=== PATIENT | female | born 1965 | race Caucasian/White ===

== ENCOUNTER → 2024-01-11 12:13 | Outpatient (REF) | payer BC, SELFPAY | LOC: RAD 12:13 | PROVIDERS: ATTENDING PHYSICIAN Internal Medicine Hematology & Oncology; FAMILY PHYSICIAN Family Medicine | DX: C34.12 Malignant neoplasm of upper lobe, left bronchus or lung (principal) | CPT/HCPCS: 71260; Q9967 ==

== ENCOUNTER 2024-06-25 13:59 | Emergency (ER) | payer BC, SELFPAY ==
[2024-06-25 14:01] VITALS: BP 144/83
--- NOTE | 2024-06-25 14:45 | ED.GENMED ---
History of Present Illness
<Yessi Matamoros TRAINING OFFICER - Last Filed: 06/27/24 10:29>
General
Chief Complaint: Abdominal Pain
Source: patient
Exam Limitations: none
Time Seen by Provider: 06/25/24 14:39
Nursing documentation reviewed up to this point in time: agreed with
History of Present Illness
History of Present Illness:
58-year-old female with history of COPD, former smoker, lung cancer with left upper lobectomy 11/2018 and chemotherapy, STEMI, cardiac stent x 2 LAD 05/2021, HLD, HTN, GERD, Barett's esophagus, hiatal hernia, Lupus, anxiety/depression, rheumatoid
arthritis presents stating for past 4 days she's had intermittent frequent mid to upper abdominal cramps sometimes radiating half way up mid chest. Sometimes cramps are so bad she is doubled over with pain. She gets 15-20 minutes respite between
episodes, does not occur at night and has been sleeping well.
No aggravating or relieving factors. No radiation of pain to extremities. Intermittent nausea, denies v/d/c. Denies UTI symptoms. Having normal BMs
Gets Repatha injections every other Sunday for cholesterol [facility].
She tested Covid neg at home today.
Currently 'a little discomfort' mid epigastric area. Feels SOB 'at times' not now.
Her PCP sent her in for CT scan and workup
Past History
<Yessi Matamoros TRAINING OFFICER - Last Filed: 06/27/24 10:29>
Past History
ED Past Medical History: CAD, Cancer (Lung), COPD, GERD (Barrette's esophagus), HTN, Hypercholesterolemia, Psychiatric (anxiety/depression) and Other (Major dental surgery with gums rebuilt, all upper teeth extracted and four lower teeth and
implants on the bottom.)
ED Past Surgical History: Cardiac (Stent LAD), Gynecological (laparoscopy for endometriosis) and Other (L upper lung lobectomy )
Social History
Tobacco: Former smoker
Alcohol: Occasional
Drug: None
Personal:
Living: with family
Family History
Family History: Other (mom with [facility] this week at age 65.)
Review of Systems
<Yessi Matamoros TRAINING OFFICER - Last Filed: 06/27/24 10:29>
Review of Systems
Allergies reviewed?: Yes
All Other Systems: ROS reviewed and negative except as documented in HPI and ROS
Constitutional: Denies fever or fatigue
Respiratory: Denies trouble breathing
Cardiac: Denies diaphoresis or palpitations
ABD/GI: Reports abdominal pain (points to epigastric region and 1/2 way up mid chest) and nausea; Denies vomiting, diarrhea, constipated, bloody stools or black stools
: Reports frequency (going more but she is drinking a lot more); Denies dysuria, flank pain, difficulty voiding, urgency or dark urine
Musculoskeletal: Reports no symptoms
Skin: Reports no symptoms
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
Phy Exam
<Yessi Matamoros, TRAINING OFFICER - Last Filed: 06/27/24 10:29>
Physical Exam
Physical Exam:
GENERAL: No acute distress. A&Ox3.
CONSTITUTIONAL: Afebrile.
EYES: clear, conjunctivae normal
ENMT: moist mucus membranes, Pharynx nl
RESPIRATORY: Regular respirations, nonlabored, lungs clear.
CARDIOVASCULAR: Regular rate and rhythm, no murmurs, no rubs.
GI: Soft, mildly tender epigastric area, nondistended, normal BS
MUSCULOSKELETAL: Moves with ease. Well perfused.
SKIN: Warm, dry, pink
PSYCH: Normal mood and affect. Well kept, interactive and appropriate
NEUROLOGIC: Awake, alert and oriented. No focal neurological deficits
Course
<Yessi Matamoros TRAINING OFFICER - Last Filed: 06/27/24 10:29>
Orders/Labs/Results
Orders:
Orders
06/25/24 15:02
EKG [Electrocardiogram (*1)] Urgent
Reason for Study: Abdominal Pain
EKG- Treatment ONCE
06/25/24 15:03
CR Chest - 2 Views Urgent
Comment:
Reason For Exam: chest discomfort
06/25/24 15:12
CT Abd/pel W Iv And Oral Contr Urgent
Comment:
Reason For Exam: mid to upper abd pain, cramping
0.9% Sodium Chloride 1000 ml [Nss] 1,000 ml IV BOLUS
Iohexol [Omnipaque] See Protocol PO NOW STA
06/25/24 15:15
Mag Hydrox/Al Hydrox/Simeth [Maalox] 30 ml Phenobarb/Hyoscy/Atropine/Scop [] 10 ml Viscous Lidocaine 2% [Xylocaine Viscous Cup] 10 ml PO NOW
06/25/24 15:17
Complete Blood Count/With Diff Urgent
Comprehensive Metabolic Panel Urgent
Lipase Urgent
Troponin I Urgent
UA Reflex to Culture [Urinalysis Reflex To Culture] Urgent
Date Specimen was Collected: 06/25/24
Time Specimen was Collected: 15:03
06/25/24 15:24
Mag Hydrox/Al Hydrox/Simeth [Maalox] 30 ml .ROUTE .STK-MED ONE
Phenobarb/Hyoscy/Atropine/Scop [] 10 ml .ROUTE .STK-MED ONE
06/25/24 15:25
Viscous Lidocaine 2% [Xylocaine Viscous Cup] 15 ml .ROUTE .STK-MED ONE
Abnormal Lab Results
06/25/24
15:17
RBC 4.17 L 10^6/uL
(4.20-5.40)
Hct 36.6 L %
(37.0-47.0)
Absolute Monos (auto) 0.8 H 10^3/uL
(0.1-0.6)
BUN 5 L mg/dl
(7-17)
Creatinine 0.5 L mg/dL
(0.6-1.0)
06/25/24 15:17
06/25/24 15:17
Vital Signs
Initial and Last Documented VS:
Initial Vital Signs
Temp Pulse Resp BP Pulse Ox
98 F 87 16 144/83 98
06/25/24 14:01 06/25/24 14:01 06/25/24 14:01 06/25/24 14:01 06/25/24 14:01
Last Documented Vital Signs
Temp Pulse Resp BP Pulse Ox
98 F 62 20 157/85 97
06/25/24 14:01 06/25/24 20:03 06/25/24 20:03 06/25/24 20:00 06/25/24 20:03
<JENA Walker - Last Filed: 06/25/24 20:01>
Orders/Labs/Results
Orders:
Orders
06/25/24 15:02
EKG [Electrocardiogram (*1)] Urgent
Reason for Study: Abdominal Pain
EKG- Treatment ONCE
06/25/24 15:03
CR Chest - 2 Views Urgent
Comment:
Reason For Exam: chest discomfort
06/25/24 15:12
CT Abd/pel W Iv And Oral Contr Urgent
Comment:
Reason For Exam: mid to upper abd pain, cramping
0.9% Sodium Chloride 1000 ml [Nss] 1,000 ml IV BOLUS
Iohexol [Omnipaque] See Protocol PO NOW STA
06/25/24 15:15
Mag Hydrox/Al Hydrox/Simeth [Maalox] 30 ml Phenobarb/Hyoscy/Atropine/Scop [] 10 ml Viscous Lidocaine 2% [Xylocaine Viscous Cup] 10 ml PO NOW
06/25/24 15:17
Complete Blood Count/With Diff Urgent
Comprehensive Metabolic Panel Urgent
Lipase Urgent
Troponin I Urgent
UA Reflex to Culture [Urinalysis Reflex To Culture] Urgent
Date Specimen was Collected: 06/25/24
Time Specimen was Collected: 15:03
06/25/24 15:24
Mag Hydrox/Al Hydrox/Simeth [Maalox] 30 ml .ROUTE .STK-MED ONE
Phenobarb/Hyoscy/Atropine/Scop [] 10 ml .ROUTE .STK-MED ONE
06/25/24 15:25
Viscous Lidocaine 2% [Xylocaine Viscous Cup] 15 ml .ROUTE .STK-MED ONE
Abnormal Lab Results
06/25/24
15:17
RBC 4.17 L 10^6/uL
(4.20-5.40)
Hct 36.6 L %
(37.0-47.0)
Absolute Monos (auto) 0.8 H 10^3/uL
(0.1-0.6)
BUN 5 L mg/dl
(7-17)
Creatinine 0.5 L mg/dL
(0.6-1.0)
06/25/24 15:17
06/25/24 15:17
Vital Signs
Initial and Last Documented VS:
Initial Vital Signs
Temp Pulse Resp BP Pulse Ox
98 F 87 16 144/83 98
06/25/24 14:01 06/25/24 14:01 06/25/24 14:01 06/25/24 14:01 06/25/24 14:01
Last Documented Vital Signs
Temp Pulse Resp BP Pulse Ox
98 F 62 20 157/85 97
06/25/24 14:01 06/25/24 20:03 06/25/24 20:03 06/25/24 20:00 06/25/24 20:03
<Yessi Matamoros, TRAINING OFFICER - Last Filed: 06/27/24 10:29>
MDM/Problems Addressed
Differential Diagnosis Includes:
gastritis, PUD, GERD, Padilla's esophagus, less likely ACS
MDM/Problems Addressed:
58-year-old female with history of COPD, former smoker, lung cancer with left upper lobectomy 11/2018 and chemotherapy, STEMI, cardiac stent x 2 LAD 05/2021, HLD, HTN, GERD, Barett's esophagus, hiatal hernia, Lupus, anxiety/depression, rheumatoid
arthritis presents stating for past 4 days she's had intermittent frequent mid to upper abdominal cramps sometimes radiating half way up mid chest. Sometimes cramps are so bad she is doubled over with pain. She gets 15-20 minutes respite between
episodes, does not occur at night and has been sleeping well.
No aggravating or relieving factors. No radiation of pain to extremities. Intermittent nausea, denies v/d/c. Denies UTI symptoms. Having normal BMs
Gets Repatha injections every other Sunday for cholesterol since her [facility].
She tested Covid neg at home today.
Currently 'a little discomfort' mid epigastric area. Feels SOB 'at times' not now.
Her PCP sent her in for CT scan and workup
Afebrile, NAD
EKG: Sinus bradycardia
3:30 p.m.
CBC normal
CMP: normal
U/A neg
Troponin normal
CXR: Radiology report read: COPD, nothing acute
Pt prepping for CT. Case discussed with Corinna Moore TRAINING OFFICER who will assume care from this point.
Chronic conditions affecting care: HTN, CAD, COPD and Cancer (hx lung CA w lobe resection and chemo)
<JENA Walker - Last Filed: 06/25/24 20:01>
MDM/Problems Addressed
MDM/Problems Addressed:
58-year-old female with history of COPD, former smoker, lung cancer with left upper lobectomy 11/2018 and chemotherapy, STEMI, cardiac stent x 2 LAD 05/2021, HLD, HTN, GERD, Barett's esophagus, hiatal hernia, Lupus, anxiety/depression, rheumatoid
arthritis presents stating for past 4 days she's had intermittent frequent mid to upper abdominal cramps sometimes radiating half way up mid chest. Sometimes cramps are so bad she is doubled over with pain. She gets 15-20 minutes respite between
episodes, does not occur at night and has been sleeping well.
No aggravating or relieving factors. No radiation of pain to extremities. Intermittent nausea, denies v/d/c. Denies UTI symptoms. Having normal BMs
Gets Repatha injections every other Sunday for cholesterol since her [facility].
She tested Covid neg at home today.
Currently 'a little discomfort' mid epigastric area. Feels SOB 'at times' not now.
Her PCP sent her in for CT scan and workup
Afebrile, NAD
EKG: Sinus bradycardia
3:30 p.m.
CBC normal
CMP: normal
U/A neg
Troponin normal
CXR: Radiology report read: COPD, nothing acute
Pt prepping for CT. Case discussed with Corinna Moore NP who will assume care from this point.
Patient signed out to me. CAT scan resulted no acute significant acute abnormality: Will DC as planned with treatment for GERD . PT in no distress stable for d/c home.
<Yessi Matamoros NP - Last Filed: 06/27/24 10:29>
*EKG
Interpreted by ED Provider?: Yes
EKG Intrepretation Date: 06/25/24
Interpretation: abnormal
Heart Rate: 58
Rate: bradycardiac
Rhythm: sinus
[place]: normal axis
Interval: normal interval
QRS Pattern: normal QRS
Ischemia: no ischemia
<JENA Walker - Last Filed: 06/25/24 20:01>
*Critical Care Note
Total Time (30-74mins, 75-104mins- exclusive of procedures): Not Applicable
ED Attending Note
<Yessi Matamoros NP - Last Filed: 06/27/24 10:29>
-
Portions of this chart may have been created with voice recognition software.� Occasional wrong word or��sound alike� substitutions may have occurred due to the inherent limitations of voice recognition software.
Discharge Plan
Departure
Patient Disposition: Home (Routine Discharge)
Date of Disposition: 06/25/24
Time of Disposition: 19:58
Patient with high blood pressure during this ER visit?: Yes
Condition: Good
Discharge Problem:
Epigastric abdominal pain, Chronic gastroesophageal reflux disease
Instructions: Acid Reflux and GERD in Adults (DC), Hiatal Hernia (DC), Abdominal Pain
Prescriptions:
New
dicyclomine 20 mg tablet
20 mg PO QID PRN (Reason: stomach cramps) Qty: 20 0RF
sucralfate [Carafate] 1 gram tablet
1 g PO ACHS Qty: 30 0RF
No Action
clonazepam 0.5 MG tablet
0.5 mg PO BID@0600,1600
losartan 25 MG tablet
50 mg PO DAILY
gabapentin 300 MG capsule
300 mg PO Daily
cholecalciferol (vitamin D3) [Vitamin D3] 1,000 UNIT capsule
1,000 unit PO DAILY
guaifenesin [Mucus Relief ER] 600 MG tablet extended release 12hr
600 mg PO DAILY
gabapentin [Neurontin] 600 MG tablet
600 mg PO QPM
clopidogrel [Plavix] 75 mg Tablet
75 mg PO DAILY
ascorbic acid (vitamin C) [Vitamin C] 500 mg Tablet
500 mg PO DAILY
pantoprazole [Protonix] 40 mg Tablet,Delayed Release (Dr/Ec)
40 mg PO QPM
psyllium husk [Metamucil] 0.4 gram Capsule
0.4 g PO 5/D
budesonide-formoterol [Symbicort] 160-4.5 mcg/actuation Hfa Aerosol Inhaler
2 inh INHALATION R BID
valacyclovir [Valtrex] 500 mg Tablet
500 mg PO BIDPRN PRN (Reason: flares)
hydrocodone-acetaminophen 7.5-325 mg Tablet
1 tab PO Q4HPRN PRN (Reason: severe pain)
biotin 1 mg Capsule
1 mg PO DAILY
Repatha SureClick 140 mg/mL Pen Injector
140 mg SC Q2W
Mucinex Nightshft Cold-Flu Clr 1.25-5-10-325 mg/10 mL Liquid
20 ml PO HS
meclizine 25 mg tablet
25 mg PO TIDPRN PRN (Reason: dizziness)
Referrals:
Kat Maravilla, DO [Family Provider] -
Iona Arcos DO [Active] - Next open appointment
Activity Restrictions/Additional Instructions:
As we discussed, your workup here shows nothing worrisome.
This may be related to your gastric reflux (GERD) and/or Padilla's esophagus.
Continue Pantoprazole, I sent a prescription to your pharmacy for Bentyl (dicyclomine)to use as needed for abdominal cramps
I sent a prescription to your pharmacy for Carafate to take before meals and at bedtime for the next week to see if it helps
Let Dr. Arcos know if they helped.
Take your medications in the morning as usual, wait an hour, then take the Carafate
Interventions
Interventions:
*Risk Screen - Suicide Last Done: 06/25/24 14:01
*General Assessment Last Done: 06/25/24 14:58
*Neglect/Abuse Screening Last Done: 06/25/24 14:58
ED- Fall Risk Assessment Last Done: 06/25/24 14:58
*ED COVID-19 Vaccine History Last Done: 06/25/24 14:58
*Nursing Disposition Last Done: 06/25/24 20:04
MD-Nncxwi-Fhkwmbhvph Assessment Last Done: 06/25/24 14:58
Discharge Date and Time
Discharge Date/Time: 06/25/24 20:14
Print Language: ALBANIAN
[2024-06-25 14:58] VITALS: BMI 22.8
[2024-06-25 15:00] VITALS: BP 128/86
[2024-06-25] MEDS: NSS 1000 IV (15:18)
[2024-06-25 15:28] LABS: % Basophils 1.1 % (0-2); % Eosinophils 0.9 % (0-6); % Immature Granulocytes 0.4 % (0-0.5); % Lymphocytes 23.1 % (20.5-51.1); % Monocytes 9.1 % (1.7-9.3); % Neutrophils 65.4 % (42.2-75.2); Absolute Basophils 0.1 10^3/uL (0-0.2); Absolute Eosinophils 0.1 10^3/uL (0-0.7); Absolute Lymphocytes 2.1 10^3/uL (1.2-3.4); Absolute Monocytes 0.8 10^3/uL (0.1-0.6); Absolute Neutrophils 6.1 10^3/uL (1.4-6.5); Hematocrit 36.6 % (37.0-47.0); Hemoglobin 12.5 g/dL (12.0-16.0); Mean Corp Hgb Conc. 34.2 g/dL (33.0-37.0); Mean Corpuscular Volume 87.8 fL (81.0-99.0); Mean Platelet Volume 8.9 fL (7.4-10.4); Nucleated Red Blood Cells % 0 %; Platelet Count 296 10^3/uL (130-400); Red Blood Cell Count 4.17 10^6/uL (4.20-5.40); Red Cell Dist. Width 13.9 % (11.5-14.5); White Blood Cell Count 9.2 10^3/uL (4.8-10.8)
[2024-06-25 15:31] LABS: Urine Albumin Negative (Neg - Trace); Urine Bilirubin Negative (Negative); Urine Character Clear (Clear); Urine Color Yellow; Urine Glucose Negative (Negative); Urine Ketone Negative (Negative); Urine Leukocyte Negative (Negative); Urine Nitrite Negative (Negative); Urine Occult Blood Negative (Negative); Urine Urobilinogen Negative (Neg - 1+); Urine pH 6.5 (5.0-9.0)
[2024-06-25 15:40] LABS: ALT (SGPT) 12 U/L (0-35); AST (SGOT) 19 U/L (14-36); Albumin 4.1 g/dl (3.5-5.0); Alkaline Phosphatase 101 U/L (38-126); Blood Urea Nitrogen 5 mg/dl (7-17); Calcium 9.8 mg/dl (8.4-10.2); Carbon Dioxide 26 mmol/L (22-30); Chloride 103 mmol/L (98-107); Estimated Creatinine Clearance 85 ml/min; Glucose 92 mg/dl (70-99); Potassium 4.2 mmol/L (3.5-5.1); Sodium 137 mmol/L (135-145); Total Bilirubin 0.4 mg/dl (0.2-1.3); Total Protein 6.5 g/dl (6.3-8.2); eGFR > 60.00
[2024-06-25] MEDS: OMNIPAQUE 50 ML PO (15:42)
[2024-06-25] MEDS: MAALOX 50 PO (15:43)
[2024-06-25 15:51] LABS: Troponin I < 0.012 ng/ml
[2024-06-25 16:00] VITALS: BP 145/63
[2024-06-25 16:05] LABS: Lipase 267 U/L (23-300)
[2024-06-25 17:00] VITALS: BP 137/70
[2024-06-25 18:00] VITALS: BP 116/68
[2024-06-25 20:00] VITALS: BP 157/85
== END 2024-06-25 20:14 | disposition home or self-care (01) ==
LOC: EMR 13:59
PROVIDERS: Registered Nurse; EMERGENCY PHYSICIAN Emergency Medicine; FAMILY PHYSICIAN Family Medicine
DX: R10.13 Epigastric pain (principal); K21.9 Gastro-esophageal reflux disease without esophagitis; R10.10 Upper abdominal pain, unspecified; E78.00 Pure hypercholesterolemia, unspecified; I10 Essential (primary) hypertension; M32.9 Systemic lupus erythematosus, unspecified; F41.8 Other specified anxiety disorders; J44.9 Chronic obstructive pulmonary disease, unspecified; I25.10 Atherosclerotic heart disease of native coronary artery without angina pectoris; I25.2 Old myocardial infarction; M06.9 Rheumatoid arthritis, unspecified; Z87.891 Personal history of nicotine dependence; Z95.5 Presence of coronary angioplasty implant and graft
CPT/HCPCS: 99284; 96360; 71046; 74177; 80053; 81003; 83690; 84484; 85025; 93005; Q9967

== ENCOUNTER → 2024-09-03 10:19 | Outpatient (REF) | payer BC, SELFPAY | LOC: HWRCS 10:19 | PROVIDERS: ATTENDING PHYSICIAN Internal Medicine Cardiovascular Disease; FAMILY PHYSICIAN Family Medicine | DX: I25.2 Old myocardial infarction (principal) | CPT/HCPCS: 93306 ==

== ENCOUNTER → 2024-09-08 14:49 | Outpatient (REF) | payer BC, SELFPAY | LOC: HWWDC 14:49 | PROVIDERS: ATTENDING PHYSICIAN Family Medicine | DX: Z12.31 Encounter for screening mammogram for malignant neoplasm of breast (principal) | CPT/HCPCS: 77063; 77067 ==

== ENCOUNTER → 2024-12-10 11:55 | Outpatient (REF) | payer BC, SELFPAY | LOC: HWRAD 11:55 | PROVIDERS: ATTENDING PHYSICIAN Family Medicine | DX: R05.9 Cough, unspecified (principal); R06.02 Shortness of breath | CPT/HCPCS: 71046 ==

== ENCOUNTER → 2025-01-15 13:05 | Outpatient (REF) | payer BC, SELFPAY | LOC: HWRAD 13:05 | PROVIDERS: ATTENDING PHYSICIAN Internal Medicine Hematology & Oncology; FAMILY PHYSICIAN Family Medicine | DX: C34.12 Malignant neoplasm of upper lobe, left bronchus or lung (principal) | CPT/HCPCS: 71250 ==

== ENCOUNTER 2025-09-19 14:11 | Inpatient (IN) | payer BC, SELFPAY ==
[2025-09-19] VITALS (12 sets, daily range): BP systolic 106–144; BP diastolic 57–75; BMI 25.3; BMI 25.4
[2025-09-19] MEDS: VENTOLIN NEBULES 15 MG INH (08:00)
[2025-09-19] MEDS: DECADRON 10 MG IV (08:00)
[2025-09-19] MEDS: MORPHINE SULFATE 4 MG IV (08:00)
--- NOTE | 2025-09-19 08:06 | ED.GENMED ---
History of Present Illness
General
Chief Complaint: Breathing Problem
Source: patient
Exam Limitations: none
Time Seen by Provider: 09/19/25 07:28
Nursing documentation reviewed up to this point in time: agreed with
History of Present Illness
History of Present Illness:
The patient is a 60-year-old female with a past medical history of COPD who reports increased work of breathing and wheezing for 7 to 10 days. Additionally, patient reports increased cough and mucus production for 2 days. Patient denies fever.
Patient reports she always has chronic chest and back pain due lung surgery, however, she reports it has become unbearable due to severe coughing. Patient denies leg pain leg swelling. Patient reports she used her rescue inhaler last at 3 AM today.
Past History
Past History
ED Past Medical History: CAD, Cancer (Lung), COPD, GERD (Barrette's esophagus), HTN, Hypercholesterolemia, Psychiatric (anxiety/depression) and Other (Major dental surgery with gums rebuilt, all upper teeth extracted and four lower teeth and
implants on the bottom.)
ED Past Surgical History: Cardiac (Stent LAD), Gynecological (laparoscopy for endometriosis) and Other (L upper lung lobectomy )
Social History
Tobacco: Former smoker
Alcohol: Occasional
Drug: None
Personal:
Living: with family
Employment: Other
Family History
Family History: Other (mom with [place] this week at age 65.)
Review of Systems
Review of Systems
Allergies reviewed?: Yes
All Other Systems: ROS reviewed and negative except as documented in HPI and ROS
Constitutional: Reports fatigue
EENT: Reports no symptoms
Respiratory: Reports cough and trouble breathing
Cardiac: Reports chest pain
ABD/GI: Reports no symptoms
: Reports no symptoms
Musculoskeletal: Reports other (Chest wall pain)
Skin: Reports no symptoms
Neurological: Reports weakness
Endocrine: Reports no symptoms
Hematologic/Lymphatic: Reports no symptoms
Psychiatric: Reports no symptoms
Phy Exam
Physical Exam
Physical Exam:
Physical Exam
General: Patient appears anxious, frequent coughing, audible wheezing
Neck: supple. no meningeal signs. normal psoterior pharynx
Heart: s1/s2 regular rate and rhythm, no murmur. equal radial pulses.
Lungs: Speaks in full sentences but frequent coughing and diffuse wheezing
Abdomen: normal bowel sounds. not tender. no CVAT
Neuro: alert and oriented. no focal neurological deficits
Skin: no rash
Psychiatric: well kept. interactive and cooperative
Extremities: no edema. no calf tenderness. negative homans. good distal pulses
Scores
Heart Failure Risk
Heart Failure Risk Score: Not Applicable
Course
Orders/Labs/Results
Orders:
Orders
09/19/25 07:44
Albuterol Sulfate [Ventolin Nebules] 15 mg INH R NOW STA
Dexamethasone Sod Phosphate [Decadron] 10 mg IV NOW STA
09/19/25 07:45
Electrocardiogram (*1) Urgent
Reason for Study: Shortness of Breath
EKG- Treatment ONCE
09/19/25 07:46
CR Chest - 2 Views Urgent
Comment:
Reason For Exam: cough, SOB
09/19/25 07:48
Morphine Sulfate 4 mg IV NOW STA
09/19/25 07:59
Basic Metabolic Panel Urgent
COVID-19 Antigen Urgent
Source: Nasal Swab
Complete Blood Count/With Diff Urgent
Influenza A+B Rapid Molecular Urgent
REYNALDO Source: Nasal Swab
Specimen Description:
09/19/25 08:43
Troponin I Urgent
09/19/25 09:02
Promethazine/Codeine [Phenergan with Codeine Syrup] 10 ml PO NOW STA
09/19/25 09:11
LFT [Nfyyq-Ldey-Wwjybum] Urgent
Potassium Urgent
09/19/25 10:46
HYDROmorphone [Dilaudid] 0.5 mg IV NOW STA
09/19/25 10:47
LevoFLOXacin 750 MG/150 ML [Levaquin] 750 mg in 150 ml IV NOW
Abnormal Lab Results
09/19/25
07:59
WBC 11.5 H 10^3/uL
(4.8-10.8)
MCHC 32.6 L g/dL
(33.0-37.0)
RDW 15.2 H %
(11.5-14.5)
Absolute Neuts (auto) 9.0 H 10^3/uL
(1.4-6.5)
Absolute Monos (auto) 0.9 H 10^3/uL
(0.1-0.6)
Neutrophils % 78.3 H %
(42.2-75.2)
Lymphocytes % 12.0 L %
(20.5-51.1)
Sodium 134 L mmol/L
(135-145)
BUN 6 L mg/dl
(7-17)
Creatinine 0.5 L mg/dL
(0.6-1.0)
09/19/25 07:59
09/19/25 09:11
Vital Signs
Initial and Last Documented VS:
Initial Vital Signs
Temp Pulse Resp BP Pulse Ox
98.2 F 92 18 131/67 95
09/19/25 07:24 09/19/25 07:24 09/19/25 07:24 09/19/25 07:24 09/19/25 07:24
Last Documented Vital Signs
Temp Pulse Resp BP Pulse Ox
98.6 F 116 21 144/65 94
09/19/25 08:13 09/19/25 10:16 09/19/25 10:16 09/19/25 10:16 09/19/25 10:16
MDM/Problems Addressed
Differential Diagnosis Includes:
COPD exacerbation, pneumonia
MDM/Problems Addressed:
Patient presents with acute shortness of breath
Chronic conditions affecting care: COPD
Acute Exacerbation and/or Progression of Chronic Illness: COPD
*Radiology
Radiology exam reviewed: preliminary read by ED provider (Chest x-ray reviewed by me. No acute disease) and radiology read reviewed
*Pulse Oximetry
SaO2: 95
Oxygen Mode of Delivery: Room air
Patient hypoxic: no
*EKG
Interpreted by ED Provider?: Yes
Interpretation: abnormal
Comparison EKG: changes noted (Heart rate elevated)
Rate: normal
Rhythm: sinus
[place]: normal axis
Interval: normal interval
QRS Pattern: normal QRS
Ischemia: ST depression
*Distillery Supervisor Interpretation
Rate: normal
Interpretation: normal
Rhythm: sinus
*Critical Care Note
Total Time (30-74mins, 75-104mins- exclusive of procedures): 35 minutes
comment:
35 minutes critical care given to patient including frequent reassessments of her respiratory effort, reviewing her prior hospitalizations, reviewing her lab work and EKG
ED Attending Note
-
Portions of this chart may have been created with voice recognition software.� Occasional wrong word or��sound alike� substitutions may have occurred due to the inherent limitations of voice recognition software.
Discharge Plan
Departure
Patient Disposition: Admit
Date of Disposition: 09/19/25
Time of Disposition: 10:43
Admit to: Med/Surg
Presentation/result/management discussed w/ accepting MD/DO: Hospitalist
Patient with high blood pressure during this ER visit?: Yes
Condition: Good
Covid-19: Negative COVID-19
Discharge Problem:
Acute exacerbation of chronic obstructive pulmonary disease
Prescriptions:
No Action
clonazepam 0.5 MG tablet
0.5 mg PO BID@0600,1600
losartan 25 MG tablet
50 mg PO DAILY
gabapentin 300 MG capsule
300 mg PO Daily
cholecalciferol (vitamin D3) [Vitamin D3] 1,000 UNIT capsule
1,000 unit PO DAILY
guaifenesin [Mucus Relief ER] 600 MG tablet extended release 12hr
600 mg PO DAILY
gabapentin [Neurontin] 600 MG tablet
600 mg PO QPM
clopidogrel [Plavix] 75 mg Tablet
75 mg PO DAILY
ascorbic acid (vitamin C) [Vitamin C] 500 mg Tablet
500 mg PO DAILY
pantoprazole [Protonix] 40 mg Tablet,Delayed Release (Dr/Ec)
40 mg PO QPM
psyllium husk [Metamucil] 0.4 gram Capsule
0.4 g PO 5/D
budesonide-formoterol [Symbicort] 160-4.5 mcg/actuation Hfa Aerosol Inhaler
2 inh INHALATION R BID
valacyclovir [Valtrex] 500 mg Tablet
500 mg PO BIDPRN PRN (Reason: flares)
hydrocodone-acetaminophen 7.5-325 mg Tablet
1 tab PO Q4HPRN PRN (Reason: severe pain)
biotin 1 mg Capsule
1 mg PO DAILY
Repatha SureClick 140 mg/mL Pen Injector
140 mg SC Q2W
Mucinex Nightshft Cold-Flu Clr 1.25-5-10-325 mg/10 mL Liquid
20 ml PO HS
meclizine 25 mg tablet
25 mg PO TIDPRN PRN (Reason: dizziness)
dicyclomine 20 mg tablet
20 mg PO QID PRN (Reason: stomach cramps) Qty: 20 0RF
sucralfate [Carafate] 1 gram tablet
1 g PO ACHS Qty: 30 0RF
Referrals:
UNKNOWN - PT NOT,INTERVIEWE [Unknown Provider]
Interventions
Interventions:
*Risk Screen - Suicide Last Done: 09/19/25 07:24
*General Assessment Last Done: 09/19/25 07:24
*Neglect/Abuse Screening Last Done: 09/19/25 07:24
*ED COVID-19 Vaccine History Last Done: 09/19/25 08:13
*ED Influenza Vaccine History Last Done: 09/19/25 08:13
[facility] Fall Risk Assessment Tool Last Done: 09/19/25 08:13
ED- Cardiac Assessment Last Done: 09/19/25 08:13
ED- Pulmonary Assessment Last Done: 09/19/25 08:13
Discharge Date and Time
Print Language: SLOV[place]
[2025-09-19 08:15] LABS: Hematocrit 37.7 % (37.0-47.0); Hemoglobin 12.3 g/dL (12.0-16.0); Mean Corp Hgb Conc. 32.6 g/dL (33.0-37.0); Mean Corpuscular Volume 87.7 fL (81.0-99.0); Nucleated Red Blood Cells % 0 %; Platelet Count 353 10^3/uL (130-400); Red Cell Dist. Width 15.2 % (11.5-14.5)
[2025-09-19 08:31] LABS: COVID-19 Antigen Negative (Negative)
[2025-09-19 08:33] LABS: Blood Urea Nitrogen 6 mg/dl (7-17); Calcium 9.8 mg/dl (8.4-10.2); Carbon Dioxide 29 mmol/L (22-30); Chloride 102 mmol/L (98-107); Estimated Creatinine Clearance 79 ml/min; Glucose 90 mg/dl (70-99); Sodium 134 mmol/L (135-145); eGFR > 60.00
[2025-09-19] MEDS: PHENERGAN WITH CODEINE SYRUP 10 ML PO (09:09)
[2025-09-19 09:19] LABS: Troponin I < 0.012 ng/ml
--- NOTE | 2025-09-19 09:29 | EDRN ---
the pt started yelling for help, this RN entered the pts room and the pt stated, 'I can't breathe, i can't breathe', the pt RR 19, Sp02 on RA 96%, no s/s of distress, the pt is hysterically crying and also stated, 'I never got my morphine, i want
morphine', this RN reminded the pt that she got Morphine through her IV by this RN, the pt stated, 'Well I need valium then', this RN notified the pt that per the provider she will get promethazine instead for her cough, the pt also wanted to be
placed on 02, this RN placed the pt on 2L NC and Sp02 remains at 94-96%, will continue to monitor the pt closely
[2025-09-19 09:42] LABS: ALT (SGPT) 16 U/L (0-35); AST (SGOT) 25 U/L (14-36); Albumin 4.3 g/dl (3.5-5.0); Alkaline Phosphatase 108 U/L (38-126); Potassium 3.7 mmol/L (3.5-5.1); Total Protein 6.8 g/dl (6.3-8.2)
[2025-09-19] MEDS: LEVAQUIN 150 IV (11:12)
[2025-09-19] MEDS: DILAUDID 0.5 MG IV (11:12)
--- NOTE | 2025-09-19 11:15 | EDRN ---
this RN entered the pts room to administer pain medication and ABX, this RN found the pt off of the monitor and sitting on the side of the bed crying, this RN asked the pt if she was okay and the pt stated, 'I don't feel good and I just don't
understand why I am being admitted, I know i said I wanted to be but i am just so sick', this RN explained that the pt should not take herself off of the monitor and that if she needed to use the bathroom to press the call dawn so that this RN could
unhook the pt from the monitor, the pt also stated, 'Where is my pain medication and I want to go to my room now and I can't breathe', this RN pointed out that the pt took the oxygen off and this RN reminded the pt that this RN was going to
administer pain medication which is why this RN was in the pts room
--- NOTE | 2025-09-19 13:02 | EDRN ---
this RN noticed that the pt was not on the monitor and got up to enter the pts room and while this RN was entering the pts room the pt pulled the emergency bathroom call button, this RN entered the pts room and the pt was on the toilet crying, the
pt stated, 'I can't breathe, someone help me', the pt appeared to be in no distress, RR 18, color normal, no signs of cyanosis, the pt was not on oxygen, the pt stated, 'I took myself off of the monitor and the oxygen', this RN reminded the pt that
this RN instructed the pt to press the call dawn if she needed to use the bathroom and the pt stated, 'Well I needed to go and I don't feel like calling, i can just take myself off of the monitor', the pt ambulated back to the stretcher
independently with no issues, this RN placed the pt back on potline monitor, Sp02 monitor, and blood pressure cuff and the pt was 96% on RA, the pt stated, 'I need my oxygen I can't breathe', this RN placed the pt back on 3L NC and notified
Roberto, still awaiting for the hospitalist to see the pt
--- NOTE | 2025-09-19 13:07 | EDRN ---
the pt pressed the call dawn and this RN entered the pts room, the pt stated, 'I need pain medication, i have barely gotten any', this RN reminded the pt that she has had morphine and dilaudid so far today, this RN asked the pt if she was still in
pain and the pt stated, 'I am always in pain, so i need more dilaudid', this RN notified the ER provider Dr. Mejia and per the provider no new orders were received, the pt again took herself off of the classroom monitor and Sp02 monitor, this RN
asked the pt if she could please not take herself off of the monitor due to the pt stating she cannot breathe and that this RN wants to monitor the pts oxygenation level and heart rhythm, the pt understands teaching however the pt stated, 'I don't
need all of that, i need pain medication', will continue to monitor the pt closely
--- NOTE | 2025-09-19 13:34 | EDRN ---
hospitalist currently at the pts bedside
--- NOTE | 2025-09-19 13:56 | HPS.HSE ---
Family Physician
-
Family Physician: Kat Maravilla
Chief Complaint
-
Shortness of breath, cough
History of Present Illness
60-year-old female with past medical history of CAD status post stent, COPD, left upper lobe adenocarcinoma status post lobectomy, GERD, hyperlipidemia came to the hospital with progressive shortness of breath along with cough. Per patient her
symptoms started this past week and progressively gotten worse. Denies any fever/chills. She reports compliance to all her medications. Per patient she always have a little bit of back pain because of her lung surgery which is now complete worse
due to severe coughing for days.
Medical History
Past Medical History
Past Medical History: Reports CAD, Cancer (Lung), COPD, GERD, Hypercholesterolemia and Psychiatric (Anxiety)
Past Surgical History: Reports Cardiac, Gynocological and Other (Left upper lobe partial lobectomy)
Social History
Tobacco: Former Smoker
Alcohol: Occasional
Drug: None
Family History
Family History: Not pertinent
Allergies / Home Medications
Allergies reflects when Allergies were last updated in [facility].
Home Medications with original date entered in [facility]
Allergy/Medication List:
Allergies
Allergy/AdvReac Type Severity Reaction Status Date / Time
acetaminophen (From Percocet) Allergy Unknown Verified 09/19/25 07:24
amoxicillin trihydrate (From Allergy Anaphylaxis Verified 09/19/25 07:24
Augmentin)
hydroxychloroquine sulfate Allergy Rash Verified 09/19/25 07:24
(From Plaquenil)
oxycodone (From Percocet) Allergy Unknown Verified 09/19/25 07:24
potassium clavulanate (From Allergy Anaphylaxis Verified 09/19/25 07:24
Augmentin)
Sulfa (Sulfonamide Allergy Rash, Verified 09/19/25 07:24
Antibiotics) itching
Home Medications
clonazepam 0.5 mg tablet 0.5 mg PO BID Mental Health/Anxiety 09/16/18
gabapentin 300 mg capsule 300 mg PO Daily Pain 01/16/19
gabapentin 600 mg tablet (Neurontin) 600 mg PO QPM Pain 05/23/21
budesonide-formoterol HFA 160 mcg-4.5 mcg/actuation aerosol inhaler (Symbicort) 2 inh inhalation R BID Lung/breathing issues 11/09/22
clopidogrel 75 mg tablet (Plavix) 75 mg PO DAILY Blood clot prevention/tx 11/09/22
pantoprazole 40 mg tablet,delayed release (Protonix) 40 mg PO BID Gastrointestinal issue 11/09/22
evolocumab 140 mg/mL subcutaneous pen injector (Repatha SureClick) 140 mg SC Q2W 06/25/24
hydrocodone 7.5 mg-acetaminophen 325 mg tablet 1 tab PO Q6HPRN PRN severe pain 06/25/24
losartan 50 mg tablet 50 mg PO DAILY 09/19/25
Review of Systems
-
History Source: Patient
A 12 point ROS was completed and negative except as noted: Yes
Respiratory: Reports Cough and Trouble Breathing
Physical Exam
Vital Signs
Vital Signs
Temp Pulse Resp BP Pulse Ox
98.6 F 98 21 114/65 95
09/19/25 13:10 09/19/25 13:30 09/19/25 13:30 09/19/25 13:10 09/19/25 13:30
Physical Exam
General: No Apparent Distress and Conversant
HEENT: Anicteric and Moist mucous membranes
Respiratory: Clear, Wheezes and Decreased Breath Sounds
Cardiac: S1/S2 and Regular Rhythm
Breast: Deferred by me
GI: Soft, Non Tender, Non Distended and Normal Bowel Sounds
Rectal: Deferred by Provider
Genito-urinary: No Luis
Musculoskeletal: No Edema
Neuro: Awake, Alert, Oriented and AO x 3
Psych: Calm and Intact Judgment/Insight
Laboratory Results
-
09/19/25 07:59
09/19/25 09:11
Laboratory Results
Total Bilirubin 0.6 mg/dl (0.2-1.3) 09/19/25 09:11
AST 25 U/L (14-36) 09/19/25 09:11
ALT 16 U/L (0-35) 09/19/25 09:11
Alkaline Phosphatase 108 U/L (38-126) 09/19/25 09:11
Troponin I < 0.012 ng/ml 09/19/25 08:43
Data Reviewed
-
Diagnostic Radiology: Report Reviewed by me and Discussed with Patient
Lab Data: Labs Reviewed by me and Discussed with Patient
Impression/Plan
-
Acute hypoxic respiratory insufficiency secondary to acute COPD exacerbation
COVID, flu negative
Profusely wheezing with cough
Start Mucinex, Tessalon Perles, Acapella
Start Decadron, DuoNeb 4 times daily and as needed
Pulmicort
Follows with Dr. Delaney outpatient, pulmonary evaluation
Chest x-ray without pneumonia
Doxycyclin
History of coronary artery disease
Continue Plavix
History of hypertension
Blood pressure normal, hold losartan for now
History of chronic pain
Continue with gabapentin, as needed hydrocodone
History of GERD
Continue Protonix
Patient anxiety
Continue clonazepam
DVT prophylaxis
Lovenox
Full code
I spent a total of 77 minutes with the patient or on the floor. More than 50% of this time involved counseling and coordination of care.
--- NOTE | 2025-09-19 14:24 | EDRN ---
this RN called the receiving unit and notified them that paper report was going to be tubed up
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
[2025-09-19] MEDS: DUONEB 3 ML INH ×3 (14:33→21:04)
--- NOTE | 2025-09-19 14:33 | EDRN ---
the pt pressed the call b [place] and this RN entered the pts room, this RN found the pt crying and the pt stated, 'I can't breathe, no one will help me', Sp02 is 96% on RA, the pts has taken her 02 off, no s/s of distress, RR 16, the pt is not
cyanotic, this RN placed 3L NC back on the pt, will continue to monitor the pt closely
[2025-09-19] MEDS: PULMICORT INH (14:34)
--- NOTE | 2025-09-19 14:40 | CM ---
Chart reviewed and spoke with pt at ED bedside
Lives in [address] with spouse, 19 yo son and mother 1 TIM
Per pt spouse and mother both smoke but she has her own bedroom
DME NONE
HOME O2 DC in [address] CLAIRE byers
[facility] [address]
hx of [facility]
NO HX OF SNF
dcp is to go home
Son can provide transportation at DC
cm will continue to follow up for any dcp needs
[2025-09-19] MEDS: DUONEB INH (15:07)
[2025-09-19] MEDS: MUCINEX 1200 MG PO ×2 (15:46→20:23)
[2025-09-19] MEDS: TESSALON PERLES 200 MG PO ×2 (15:47→20:23)
[2025-09-19] MEDS: VIBRAMYCIN 100 MG PO ×2 (15:47→20:23)
[2025-09-19] MEDS: NORCO 7.5/325 1 TABLET PO ×2 (15:56→22:54)
--- NOTE | 2025-09-19 17:02 | PTCARENOTE ---
Received patient from ED AAOx3. Pt anxious. Pt ALANIZ and SOB at rest. Dr. Roque made aware. Pt medicated with now dose of Clonazepam with moderate relief. Pt receive a respiratory treatment. Pt medicated with Mucinex, Tessalon Perles and Vibramycin
as ordered. Pt complained of generalized pain in back. Medicated with [place] with relief. Made patient comfortable. Cont to assess patient status.
[2025-09-19] MEDS: DECADRON 6 MG IV (18:05)
[2025-09-19] MEDS: NEURONTIN 600 MG PO (18:05)
[2025-09-19] MEDS: LOVENOX 40 MG SC (18:08)
[2025-09-19] MEDS: PROTONIX 40 MG PO (20:23)
[2025-09-19] MEDS: PULMICORT 0.5 MG INH (21:03)
[2025-09-19] MEDS: LIDOCAINE 4% PATCH 1 PATCH TOPICAL (21:23)
[2025-09-19] MEDS: MELATONIN 5 MG PO (21:24)
[2025-09-20] MEDS: DECADRON 6 MG IV ×2 (03:00→10:03)
[2025-09-20 03:59] VITALS: BP 140/75
[2025-09-20] MEDS: DUONEB 3 ML INH ×5 (04:09→20:00)
[2025-09-20] MEDS: NORCO 7.5/325 1 TABLET PO ×2 (05:36→11:40)
[2025-09-20 06:00] VITALS: BMI 25.1
[2025-09-20 06:54] LABS: Hematocrit 35.1 % (37.0-47.0); Hemoglobin 11.9 g/dL (12.0-16.0); Mean Corp Hgb Conc. 33.9 g/dL (33.0-37.0); Mean Corpuscular Volume 85.8 fL (81.0-99.0); Nucleated Red Blood Cells % 0 %; Platelet Count 331 10^3/uL (130-400); Red Cell Dist. Width 14.6 % (11.5-14.5)
[2025-09-20 07:00] VITALS: BP 123/68
[2025-09-20 07:56] LABS: Blood Urea Nitrogen 7 mg/dl (7-17); Calcium 10.1 mg/dl (8.4-10.2); Carbon Dioxide 25 mmol/L (22-30); Chloride 99 mmol/L (98-107); Estimated Creatinine Clearance 79 ml/min; Glucose 113 mg/dl (70-99); Potassium 4.4 mmol/L (3.5-5.1); Sodium 132 mmol/L (135-145); eGFR > 60.00
[2025-09-20] MEDS: PULMICORT 0.5 MG INH ×2 (08:12→20:00)
[2025-09-20] MEDS: MUCINEX 1200 MG PO ×2 (08:18→20:33)
[2025-09-20] MEDS: PROTONIX 40 MG PO ×2 (08:18→20:33)
[2025-09-20] MEDS: TESSALON PERLES 200 MG PO ×2 (08:18→16:10)
[2025-09-20] MEDS: VIBRAMYCIN 100 MG PO ×2 (08:18→20:33)
[2025-09-20] MEDS: NEURONTIN 300 MG PO (08:18)
[2025-09-20] MEDS: PLAVIX 75 MG PO (08:20)
[2025-09-20 11:00] VITALS: BP 119/70
--- NOTE | 2025-09-20 11:35 | W.PN.HOSP.TC ---
Today's Communication/Plan
-
Monitor vitals
See plan
Wean oxygen as tolerated
Continue with nebs
Decrease Decadron to 4 every 8
Pulmonary following
Check echo
Assessment / Plan
Assessment / Plan
General: No Apparent Distress and Conversant
HEENT: Anicteric and Moist mucous membranes
Respiratory: Clear, Wheezes and Decreased Breath Sounds
Cardiac: S1/S2 and Regular Rhythm
GI: Soft, Non Tender, Non Distended and Normal Bowel Sounds
Genito-urinary: No Luis
Musculoskeletal: No Edema
Neuro: Awake, Alert, Oriented and AO x 3
Psych: Calm and Intact Judgment/Insight
Acute hypoxic respiratory insufficiency secondary to acute COPD exacerbation
Currently on 4 L, wean oxygen as tolerated
COVID, flu negative
Profusely wheezing with cough
cw Mucinex, Tessalon Perles, Acapella
Decrease Decadron to 4 every 8, DuoNeb 4 times daily and as needed
Pulmicort
Follows with Dr. Delaney outpatient, pulmonary following
Chest x-ray without pneumonia
Doxycyclin
History of coronary artery disease
Continue Plavix
Subjective shortness of breath, no clear trigger for COPD exacerbation at this time. Check echo
History of hypertension
Blood pressure normal, hold losartan for now
History of chronic pain
Continue with gabapentin, as needed hydrocodone
History of GERD
Continue Protonix
Patient anxiety
Continue clonazepam
DVT prophylaxis
Lovenox
Full code
I spent a total of 52 minutes with the patient or on the floor. More than 50% of this time involved counseling and coordination of care.
Anticipated Discharge: > 48 hours
Subjective/Interval History
-
Date of Service: September 20, 2025
Still has cough
Objective Data
-
Labs:
Laboratory Results
09/20/25
06:23
WBC 8.8
Hgb 11.9 L
Hct 35.1 L
Plt Count 331
Sodium 132 L
Potassium 4.4
Chloride 99
Carbon Dioxide 25
BUN 7
Creatinine 0.5 L
Glucose 113 H
Calcium 10.1
Vital Signs:
Vital Signs
Temp Pulse Resp BP Pulse Ox
97.7 F 101 20 123/68 97
09/20/25 07:00 09/20/25 08:10 09/20/25 08:10 09/20/25 07:00 09/20/25 08:10
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
[2025-09-20] MEDS: LIDOCAINE 4% PATCH 1 PATCH TOPICAL (12:53)
[2025-09-20 15:00] VITALS: BP 136/76
[2025-09-20] MEDS: DECADRON 4 MG IV (17:13)
[2025-09-20] MEDS: LOVENOX 40 MG SC (17:16)
[2025-09-20] MEDS: NEURONTIN 600 MG PO (17:23)
[2025-09-20 19:00] VITALS: BP 135/77
[2025-09-20] MEDS: REMOVE LIDOCAINE PATCH 1 PATCH REMOVE (20:34)
[2025-09-20] MEDS: TESSALON PERLES PO (21:05)
[2025-09-20 23:43] VITALS: BP 137/69
[2025-09-21] MEDS: DECADRON 4 MG IV ×3 (02:41→17:16)
[2025-09-21 03:21] VITALS: BP 122/57
[2025-09-21] MEDS: TESSALON PERLES 200 MG PO ×3 (05:32→21:38)
[2025-09-21] MEDS: DUONEB 3 ML INH ×5 (05:45→19:26)
[2025-09-21 06:00] VITALS: BMI 25.2
[2025-09-21] MEDS: PULMICORT 0.5 MG INH ×2 (07:20→19:26)
[2025-09-21 07:26] LABS: Hematocrit 35.4 % (37.0-47.0); Hemoglobin 11.5 g/dL (12.0-16.0); Mean Corp Hgb Conc. 32.5 g/dL (33.0-37.0); Mean Corpuscular Volume 89.2 fL (81.0-99.0); Nucleated Red Blood Cells % 0 %; Platelet Count 331 10^3/uL (130-400); Red Cell Dist. Width 14.7 % (11.5-14.5)
[2025-09-21 07:51] LABS: Blood Urea Nitrogen 14 mg/dl (7-17); Calcium 9.8 mg/dl (8.4-10.2); Carbon Dioxide 33 mmol/L (22-30); Chloride 96 mmol/L (98-107); Estimated Creatinine Clearance 79 ml/min; Glucose 91 mg/dl (70-99); Potassium 4.4 mmol/L (3.5-5.1); Sodium 131 mmol/L (135-145); eGFR > 60.00
[2025-09-21] MEDS: MUCINEX 1200 MG PO ×2 (08:10→20:07)
[2025-09-21] MEDS: PLAVIX 75 MG PO (08:10)
[2025-09-21] MEDS: LIDOCAINE 4% PATCH 1 PATCH TOPICAL (08:10)
[2025-09-21] MEDS: VIBRAMYCIN 100 MG PO ×2 (08:10→20:09)
[2025-09-21] MEDS: NEURONTIN 300 MG PO (08:10)
[2025-09-21] MEDS: PROTONIX 40 MG PO ×2 (08:10→20:09)
[2025-09-21 08:11] VITALS: BP 141/70
[2025-09-21] MEDS: TESSALON PERLES PO (08:12)
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
[2025-09-21] MEDS: NORCO 7.5/325 1 TABLET PO ×2 (10:11→20:15)
[2025-09-21 12:39] VITALS: BP 114/64
--- NOTE | 2025-09-21 12:56 | W.PN.HOSP.TC ---
Today's Communication/Plan
-
Monitor vitals
See plan
Continue with IV steroids, DuoNebs, Pulmicort
Start clotrimazole
Pulmonary following
Wean oxygen as tolerated
Assessment / Plan
Assessment / Plan
General: No Apparent Distress and Conversant
HEENT: Anicteric and Moist mucous membranes
Respiratory: Clear, Wheezes and Decreased Breath Sounds
Cardiac: S1/S2 and Regular Rhythm
GI: Soft, Non Tender, Non Distended and Normal Bowel Sounds
Genito-urinary: No Luis
Musculoskeletal: No Edema
Neuro: Awake, Alert, Oriented and AO x 3
Psych: Calm and Intact Judgment/Insight
Acute hypoxic respiratory insufficiency secondary to acute COPD exacerbation
Currently on 3 L, wean oxygen as tolerated. Will need home O2 evaluation prior to discharge
COVID, flu negative
Still has persistent cough
cw Mucinex, Tessalon Perles, Acapella
cw Decadron to 4 every 8, DuoNeb 4 times daily and as needed
Pulmicort
Follows with Dr. Delaney outpatient, pulmonary following
Chest x-ray without pneumonia
Doxycycline
Oral thrush
Start clotrimazole
History of coronary artery disease
Continue Plavix
Subjective shortness of breath, no clear trigger for COPD exacerbation at this time. Check echo
Hyponatremia
Monitor
History of hypertension
Blood pressure normal, hold losartan for now
History of chronic pain
Continue with gabapentin, as needed hydrocodone
History of GERD
Continue Protonix
Patient anxiety
Continue clonazepam
DVT prophylaxis
Lovenox
Full code
I spent a total of 51 minutes with the patient or on the floor. More than 50% of this time involved counseling and coordination of care.
Anticipated Discharge: 24 - 48 hours
Subjective/Interval History
-
Date of Service: September 21, 2025
Still coughing a lot
Objective Data
-
Labs:
Laboratory Results
09/21/25
07:03
WBC 12.4 H
Hgb 11.5 L
Hct 35.4 L
Plt Count 331
Sodium 131 L
Potassium 4.4
Chloride 96 L
Carbon Dioxide 33 H
BUN 14
Creatinine 0.6
Glucose 91
Calcium 9.8
Vital Signs:
Vital Signs
Temp Pulse Resp BP Pulse Ox
98.3 F 78 22 141/70 94
09/21/25 08:11 09/21/25 08:30 09/21/25 08:30 09/21/25 08:11 09/21/25 08:51
I&O
09/20/25 09/21/25 09/22/25
06:59 06:59 06:59
Intake Total 480 / 480
Balance 480 / 480
[2025-09-21] MEDS: MYCELEX TROCHE 10 MG PO ×3 (13:16→21:39)
--- NOTE | 2025-09-21 14:51 | PN.CDI ---
CDI
- -
CDI:
Physician Documentation Request
Admit Date: 09/19/25 14:11
Dear Doctor Jude,
Please review the following and provide your response in the progress notes.
Clinical Indicators:
Pt admitted with COPD exacerbation
Documented per ED,'...reports increased work of breathing and wheezing for 7 to 10 days. Additionally, patient reports increased cough and mucus production for 2 days.... Patient appears anxious, frequent coughing, audible wheezing... Lungs:
Speaks in full sentences but frequent coughing and diffuse wheezing...'
Documented per H&P, ' Profusely wheezing with cough Start Mucinex, Tessalon Perles, AcapellaStart Decadron, DuoNeb 4 times daily and as needed...'
Pulmonology consult, ' Respiratory: Wheeze, Non-Labored Respirations and Other (poor air movement)...Hypoxemia noted on arrival, she is currently 94% on 4 L...'
Selected Entries
09/19/25
08:30 09/19/25
10:16 09/19/25
11:30
Pulse 116 101
Resp Rate 26
Nasal Cannula flow liters per minute 2
09/19/25
12:45 09/19/25
14:15 09/19/25
14:30
Pulse 108 106
Resp Rate 24 25
09/19/25
14:34 09/19/25
15:28 09/20/25
07:00
Pulse 108
Nasal Cannula flow liters per minute 4 3.5
09/20/25
11:00 09/20/25
23:43 09/21/25
08:10
Nasal Cannula flow liters per minute 4 4 3
09/21/25
08:51 09/21/25
14:45
Nasal Cannula flow liters per minute 3 2
Clarify which of the following accurately represents the patient's respiratory status:
Acute Hypoxic Respiratory failure
Hypoxia only
Other ( please specify)
Additional information for Respiratory Failure:
Recognized criteria for Respiratory Failure (Source: Osiris Cardenas. 2018September 03.
Documentation tips: Acute Respiratory Failure, The Hospitalist.)
ABGs: (1 or more) Symptoms Please indicate type if known
1. p)2 <60 or RA SPO2 <91% on RA 1. Tachypnea, SOB, dyspnea Hypoxic
2. pCO2 >45 and pH <7.35 2. Use of accessory muscles Hypercapnic
3. pO2 decrease of pCO2 increase by 3. Pallor or cyanosis Hypoxic and Hypercapnic
10 mmHg from baseline if known 4. Anxiety or restlessness Unable to determine
4. P/F Ratio (pO2/FiO2)less than 300 5. Unable to speak in full sentences
Use of terms such as suspected, likely, concern for, or probable (associated with a specific diagnosis that is being evaluated, monitored, or treated as if it exists) are acceptable and can be coded in the inpatient setting, when documented at the
time of discharge.
Thank you,
Melissa Higuera RN
CDI Specialist
[employer]
Please use your independent medical judgment in providing your response.
[2025-09-21 15:40] VITALS: BP 112/65
--- NOTE | 2025-09-21 16:32 | CM ---
Met with pt bedside. Remains on 2LPM via n/c and IV steroids. Tearful today.
Pt may qualify for VN. Will discuss this with the patient tomorrow.
Plan: DC home without O2, if possible. May need VN upon discharge.
[2025-09-21] MEDS: MYCELEX TROCHE PO (17:14)
[2025-09-21] MEDS: LOVENOX 40 MG SC (17:14)
[2025-09-21] MEDS: NEURONTIN 600 MG PO (17:16)
[2025-09-21 19:15] VITALS: BP 131/77
[2025-09-21] MEDS: REMOVE LIDOCAINE PATCH 1 PATCH REMOVE (20:10)
[2025-09-21] MEDS: ANESTHETIC LOZENGE 1 LOZENGE PO (21:46)
[2025-09-21 23:41] VITALS: BP 131/65
[2025-09-22] MEDS: DUONEB 3 ML INH ×5 (02:16→19:19)
[2025-09-22] MEDS: DECADRON 4 MG IV ×3 (02:39→17:17)
[2025-09-22] MEDS: NORCO 7.5/325 1 TABLET PO ×3 (02:47→18:50)
[2025-09-22 03:45] VITALS: BP 125/66
[2025-09-22 06:00] VITALS: BMI 24.9
[2025-09-22] MEDS: PULMICORT 0.5 MG INH ×2 (07:18→19:19)
[2025-09-22] MEDS: LIDOCAINE 4% PATCH 1 PATCH TOPICAL (08:02)
[2025-09-22] MEDS: MYCELEX TROCHE 10 MG PO ×5 (08:03→21:47)
[2025-09-22] MEDS: MUCINEX 1200 MG PO (08:03)
[2025-09-22] MEDS: VIBRAMYCIN 100 MG PO ×2 (08:03→19:51)
[2025-09-22] MEDS: PROTONIX 40 MG PO ×2 (08:03→19:51)
[2025-09-22] MEDS: TESSALON PERLES 200 MG PO ×3 (08:03→21:45)
[2025-09-22] MEDS: NEURONTIN 300 MG PO (08:03)
[2025-09-22 08:24] VITALS: BP 136/67
[2025-09-22 08:29] LABS: Hematocrit 38.1 % (37.0-47.0); Hemoglobin 12.2 g/dL (12.0-16.0); Mean Corp Hgb Conc. 32.0 g/dL (33.0-37.0); Mean Corpuscular Volume 86.8 fL (81.0-99.0); Nucleated Red Blood Cells % 0 %; Platelet Count 352 10^3/uL (130-400); Red Cell Dist. Width 14.9 % (11.5-14.5)
[2025-09-22] MEDS: PLAVIX 75 MG PO (09:32)
[2025-09-22 09:52] LABS: Blood Urea Nitrogen 14 mg/dl (7-17); Calcium 9.8 mg/dl (8.4-10.2); Carbon Dioxide 33 mmol/L (22-30); Chloride 93 mmol/L (98-107); Estimated Creatinine Clearance 79 ml/min; Glucose 109 mg/dl (70-99); Potassium 4.2 mmol/L (3.5-5.1); Sodium 131 mmol/L (135-145); eGFR > 60.00
--- NOTE | 2025-09-22 10:47 | CM ---
Addendum entered by Asmita Montanez 09/22/25 11:06:
Spoke with pt about opportunity for VN post-discharge. Pt is agreeable. Choices offered, pt had [facility] in the past and would like them again. Referral placed with liaison.
Original Note:
No discharge today per Dr. Roque. Pt remains on IV steroids and 2 LPM O2.
Plan: Home with no needs vs. with VN and home O2
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
--- NOTE | 2025-09-22 12:23 | VNURNOTE ---
Addendum entered by Katty Mays RN 09/23/25 13:35:
Chart reviewed. Pt needed 02 w/ambulation per testing. Rx, clinicals faxed to Isaias at [employer] fax # [phone]. He will deliver portable to bedside today. Aware of probable DC tomorrow.
Checked w/hospitalist Dr Roque, he does not anticipate nebs upon DC. Will continue to follow.
Original Note:
Home Health Liaison met with patient and spouse at bedside to discuss [facility] nurse/therapy, visits, schedule and homebound status. Patient is agreeable and understands that visits at home will be 2-3 x per week to assess and teach medical
management. Patient does not have home 02. Currently is weaning 02 here. She does confirm that she has a neb machine at home. Patient is aware that [facility] will contact them for start of care within a week after discharge from . Provided
contact number for [facility].
[facility] referral completed in [facility].
--- NOTE | 2025-09-22 12:49 | W.PN.HOSP.TC ---
Today's Communication/Plan
-
Monitor vital signs see plan
Wean oxygen as tolerated
Continue with cough meds
Continue with IV steroids
Continue with nebs
Will need home O2 evaluation prior to discharge
Assessment / Plan
Assessment / Plan
General: No Apparent Distress and Conversant
HEENT: Anicteric and Moist mucous membranes
Respiratory: Clear, Wheezes and Decreased Breath Sounds
Cardiac: S1/S2 and Regular Rhythm
GI: Soft, Non Tender, Non Distended and Normal Bowel Sounds
Genito-urinary: No Luis
Musculoskeletal: No Edema
Neuro: Awake, Alert, Oriented and AO x 3
Psych: Calm and Intact Judgment/Insight
Acute hypoxic respiratory Failure secondary to acute COPD exacerbation
Had tachypnea, was unable to speak full sentences on admission
Currently on 2 L, wean oxygen as tolerated. Will need home O2 evaluation prior to discharge
COVID, flu negative
Still has persistent cough, cw cough meds
cw Decadron to 4 every 8, DuoNeb 4 times daily and as needed
Pulmicort
Follows with Dr. Delaney outpatient, pulmonary following
Chest x-ray without pneumonia
Doxycycline
Oral thrush
cw clotrimazole
History of coronary artery disease
Continue Plavix
Subjective shortness of breath, no clear trigger for COPD exacerbation at this time. Echo 09/21 with preserved EF
Hyponatremia
Monitor
History of hypertension
Blood pressure normal, hold losartan for now
History of chronic pain
Continue with gabapentin, as needed hydrocodone
History of GERD
Continue Protonix
Patient anxiety
Continue clonazepam
DVT prophylaxis
Lovenox
Full code
I spent a total of 52 minutes with the patient or on the floor. More than 50% of this time involved counseling and coordination of care.
Anticipated Discharge: 24 - 48 hours
Subjective/Interval History
-
Date of Service: September 22, 2025
Still has significant cough
Objective Data
-
Labs:
Laboratory Results
09/22/25
08:08
WBC 10.9 H
Hgb 12.2
Hct 38.1
Plt Count 352
Sodium 131 L
Potassium 4.2
Chloride 93 L
Carbon Dioxide 33 H
BUN 14
Creatinine 0.5 L
Glucose 109 H
Calcium 9.8
Vital Signs:
Vital Signs
Temp Pulse Resp BP Pulse Ox
98.4 F 74 18 136/67 93
09/22/25 08:24 09/22/25 11:29 09/22/25 11:29 09/22/25 08:24 09/22/25 11:29
I&O
09/21/25 09/22/25 09/23/25
06:59 06:59 06:59
Intake Total 480 / 480 1200 / 1200 120 / 120
Balance 480 / 480 1200 / 1200 120 / 120
[2025-09-22] MEDS: ANESTHETIC LOZENGE 1 LOZENGE PO (15:44)
[2025-09-22 16:00] VITALS: BP 129/72
[2025-09-22] MEDS: NEURONTIN 600 MG PO (17:17)
[2025-09-22] MEDS: LOVENOX 40 MG SC (17:17)
[2025-09-22 19:38] VITALS: BP 112/84
[2025-09-22] MEDS: REMOVE LIDOCAINE PATCH 1 PATCH REMOVE (19:51)
[2025-09-22 21:49] VITALS: BP 125/67
[2025-09-22] MEDS: NON-FORMULARY ITEM 1 UNIT PO (21:50)
[2025-09-22 23:56] VITALS: BP 115/55
[2025-09-23] MEDS: DECADRON 4 MG IV ×3 (02:00→17:34)
[2025-09-23 03:00] VITALS: BP 141/73
[2025-09-23] MEDS: ANESTHETIC LOZENGE 1 LOZENGE PO (03:42)
[2025-09-23] MEDS: NORCO 7.5/325 1 TABLET PO ×2 (05:50→19:27)
[2025-09-23] MEDS: PULMICORT 0.5 MG INH ×2 (05:54→19:31)
[2025-09-23] MEDS: DUONEB 3 ML INH ×4 (05:54→19:31)
[2025-09-23 06:00] VITALS: BMI 24.8
[2025-09-23 07:00] VITALS: BP 125/70
[2025-09-23 07:37] LABS: Hematocrit 37.9 % (37.0-47.0); Hemoglobin 12.2 g/dL (12.0-16.0); Mean Corp Hgb Conc. 32.2 g/dL (33.0-37.0); Mean Corpuscular Volume 86.9 fL (81.0-99.0); Nucleated Red Blood Cells % 0 %; Platelet Count 353 10^3/uL (130-400); Red Cell Dist. Width 15.1 % (11.5-14.5)
[2025-09-23 08:05] LABS: Blood Urea Nitrogen 14 mg/dl (7-17); Calcium 9.8 mg/dl (8.4-10.2); Carbon Dioxide 32 mmol/L (22-30); Chloride 94 mmol/L (98-107); Estimated Creatinine Clearance 79 ml/min; Glucose 106 mg/dl (70-99); Potassium 4.1 mmol/L (3.5-5.1); Sodium 132 mmol/L (135-145); eGFR > 60.00
[2025-09-23] MEDS: PROTONIX 40 MG PO ×2 (08:18→20:45)
[2025-09-23] MEDS: LIDOCAINE 4% PATCH 1 PATCH TOPICAL (08:18)
[2025-09-23] MEDS: NEURONTIN 300 MG PO (08:18)
[2025-09-23] MEDS: MYCELEX TROCHE 10 MG PO ×5 (08:19→22:26)
[2025-09-23] MEDS: VIBRAMYCIN 100 MG PO ×2 (08:19→20:45)
[2025-09-23] MEDS: TESSALON PERLES 200 MG PO ×3 (08:19→22:26)
[2025-09-23] MEDS: PLAVIX 75 MG PO (08:19)
--- NOTE | 2025-09-23 10:34 | CM ---
Met with pt bedside. Remains on O2 n/c. Was SOB with conversation. Home O2 eval today. Anticipating DC tomorrow
Plan: DC to Home with [facility]
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
[2025-09-23 11:00] VITALS: BP 141/76
--- NOTE | 2025-09-23 12:13 | W.PN.HOSP.TC ---
Addendum entered and electronically signed by Mihir Roque MD 09/23/25 13:20:
Patient is in need of oxygen on exertion due to pulse ox of 90% room air at rest. 86% on room air with exertion. Patient was placed on 2LPM via nasal canula during ambulation with sat of 91%. Oxygen will help improve hypoxemia. Patient is mobile
within the home. Albuterol tx was discussed and is ineffective in treating hypoxemia-related symptoms
Original Note:
Today's Communication/Plan
-
Monitor vital signs and see plan
Continue with IV steroids
Slowly improving, likely discharge tomorrow on oral prednisone
Pulmonary following
Home O2 evaluation
Assessment / Plan
Assessment / Plan
General: No Apparent Distress and Conversant
HEENT: Anicteric and Moist mucous membranes
Respiratory: Clear, Wheezes and Decreased Breath Sounds
Cardiac: S1/S2 and Regular Rhythm
GI: Soft, Non Tender, Non Distended and Normal Bowel Sounds
Genito-urinary: No Luis
Musculoskeletal: No Edema
Neuro: Awake, Alert, Oriented and AO x 3
Psych: Calm and Intact Judgment/Insight
Acute hypoxic respiratory Failure secondary to acute COPD exacerbation
Had tachypnea, was unable to speak full sentences on admission
Currently on 2 L, wean oxygen as tolerated. Will need home O2 evaluation prior to discharge
COVID, flu negative
Still has persistent cough, cw cough meds
cw Decadron to 4 every 8, DuoNeb 4 times daily and as needed
Pulmicort
Follows with Dr. Delaney outpatient, pulmonary following
Chest x-ray without pneumonia
cw Doxycycline; last day 09/24
Oral thrush
cw clotrimazole
History of coronary artery disease
Continue Plavix
Subjective shortness of breath, no clear trigger for COPD exacerbation at this time. Echo 09/21 with preserved EF
Hyponatremia
Monitor
History of hypertension
Blood pressure normal, hold losartan for now as normotensive
History of chronic pain
Continue with gabapentin, as needed hydrocodone
History of GERD
Continue Protonix
Patient anxiety
Continue clonazepam
DVT prophylaxis
Lovenox
Full code
I spent a total of 51 minutes with the patient or on the floor. More than 50% of this time involved counseling and coordination of care.
Anticipated Discharge: Within 24 hours
Subjective/Interval History
-
Date of Service: September 23, 2025
Denies pain
Objective Data
-
Labs:
Laboratory Results
09/23/25
06:49
WBC 10.1
Hgb 12.2
Hct 37.9
Plt Count 353
Sodium 132 L
Potassium 4.1
Chloride 94 L
Carbon Dioxide 32 H
BUN 14
Creatinine 0.6
Glucose 106 H
Calcium 9.8
Vital Signs:
Vital Signs
Temp Pulse Resp BP Pulse Ox
98.3 F 84 16 125/70 94
09/23/25 07:00 09/23/25 11:17 09/23/25 11:17 09/23/25 07:00 09/23/25 10:53
I&O
09/22/25 09/23/25 09/24/25
06:59 06:59 06:59
Intake Total 1200 / 1200 620 / 620
Balance 1200 / 1200 620 / 620
[2025-09-23 15:00] VITALS: BP 125/71
[2025-09-23] MEDS: LOVENOX 40 MG SC (17:35)
[2025-09-23] MEDS: NEURONTIN 600 MG PO (17:35)
[2025-09-23 19:45] VITALS: BP 132/76
[2025-09-23] MEDS: REMOVE LIDOCAINE PATCH 1 PATCH REMOVE (20:45)
[2025-09-23] MEDS: NON-FORMULARY ITEM 1 UNIT PO (22:27)
[2025-09-23 23:01] VITALS: BP 121/76
[2025-09-24] MEDS: DECADRON 4 MG IV ×2 (02:49→09:22)
[2025-09-24 03:38] VITALS: BP 128/64
[2025-09-24 05:37] VITALS: BMI 24.8
[2025-09-24] MEDS: DUONEB 3 ML INH ×3 (05:51→11:34)
[2025-09-24 07:00] VITALS: BP 118/68
[2025-09-24 07:26] LABS: Hematocrit 37.8 % (37.0-47.0); Hemoglobin 12.4 g/dL (12.0-16.0); Mean Corp Hgb Conc. 32.8 g/dL (33.0-37.0); Mean Corpuscular Volume 88.5 fL (81.0-99.0); Nucleated Red Blood Cells % 0 %; Platelet Count 352 10^3/uL (130-400); Red Cell Dist. Width 15.1 % (11.5-14.5)
[2025-09-24] MEDS: PULMICORT 0.5 MG INH (07:37)
[2025-09-24 08:00] LABS: Blood Urea Nitrogen 16 mg/dl (7-17); Calcium 9.6 mg/dl (8.4-10.2); Carbon Dioxide 32 mmol/L (22-30); Chloride 94 mmol/L (98-107); Estimated Creatinine Clearance 79 ml/min; Glucose 106 mg/dl (70-99); Potassium 4.1 mmol/L (3.5-5.1); Sodium 130 mmol/L (135-145); eGFR > 60.00
[2025-09-24] MEDS: MYCELEX TROCHE 10 MG PO ×2 (08:06→11:37)
[2025-09-24] MEDS: NORCO 7.5/325 1 TABLET PO (08:06)
[2025-09-24] MEDS: NEURONTIN 300 MG PO (08:07)
[2025-09-24] MEDS: TESSALON PERLES 200 MG PO (08:07)
[2025-09-24] MEDS: VIBRAMYCIN 100 MG PO (08:07)
[2025-09-24] MEDS: PROTONIX 40 MG PO (08:07)
[2025-09-24] MEDS: PLAVIX 75 MG PO (08:07)
[2025-09-24] MEDS: LIDOCAINE 4% PATCH 1 PATCH TOPICAL (08:08)
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
[2025-09-24 11:00] VITALS: BP 156/79
--- NOTE | 2025-09-24 11:05 | W.PN.HOSP.TC ---
Today's Communication/Plan
-
dc home/VN
Assessment / Plan
Assessment / Plan
Exam:
General: No Apparent Distress and Conversant
HEENT: Anicteric and Moist mucous membranes
Respiratory: Clear, Wheezes and Decreased Breath Sounds
Cardiac: S1/S2 and Regular Rhythm
GI: Soft, Non Tender, Non Distended and Normal Bowel Sounds
Genito-urinary: No Luis
Musculoskeletal: No Edema
Neuro: Awake, Alert, Oriented and AO x 3
Psych: Calm and Intact Judgment/Insight
Assessment:
Acute hypoxic respiratory Failure secondary to acute COPD exacerbation
- Patient is in need of oxygen on exertion due to pulse ox of 90% room air at rest. 86% on room air with exertion. Patient was placed on 2LPM via nasal canula during ambulation with sat of 91%. Oxygen will help improve hypoxemia. Patient is mobile
within the home. Albuterol tx was discussed and is ineffective in treating hypoxemia-related symptoms
- dc on prednisone taper
- completed 5 day Doxy course
- OP Pulm f/u
- continue home nebs, inhalers
Oral Thrush
- finish 2 week Clotrimazole course
CAD
- continue Plavix
Hyponatremia
- monitor
History of Essential hypertension
- on Losartan
History of chronic pain
- continue with gabapentin, as needed hydrocodone
History of GERD
- continue Protonix
Anxiety
- continue clonazepam
DVT prophylaxis: Lovenox
Code: Full
More than 30 minutes spent in discharge including
Final examination of the patient
Summarizing hospital stay
Instructions for continuing care to all relevant caregivers
Preparation of discharge records, prescriptions, and referral forms
Total time spent (in minutes): 41
Anticipated Discharge: Today
Subjective/Interval History
-
Date of Service: September 24, 2025
reports improvement in breathing, less SOB
requires home O2 which was setup
Objective Data
-
Labs:
Laboratory Results
09/24/25
06:31
WBC 9.5
Hgb 12.4
Hct 37.8
Plt Count 352
Sodium 130 L
Potassium 4.1
Chloride 94 L
Carbon Dioxide 32 H
BUN 16
Creatinine 0.5 L
Glucose 106 H
Calcium 9.6
Vital Signs:
Vital Signs
Temp Pulse Resp BP Pulse Ox
98.4 F 89 18 118/68 95
09/24/25 07:00 09/24/25 07:43 09/24/25 07:43 09/24/25 07:00 09/24/25 10:38
I&O
09/23/25 09/24/25 09/25/25
06:59 06:59 06:59
Intake Total 620 / 620 360 / 360
Balance 620 / 620 360 / 360
Data Reviewed
-
Total Time Spent with Patient (in minutes): 42
Labs: Labs Reviewed by me
--- NOTE | 2025-09-24 11:12 | W.DCSUMMARY ---
Discharge Summary
Discharge Data
Date of Admission: 09/19/25
Date of Discharge: 09/24/25
-
Pending Results: No
Hospital Course
60 y/o F, hx of CAD status post stent, COPD, left upper lobe adenocarcinoma status post lobectomy, GERD, hyperlipidemia presented on 09/19 with SOB and cough - progressive symptoms. She reported compliance with inhalers and meds. She was found to
have acute COPD exacerbation. Pulmonary was consulted. She was treated with IV steroids and finished a course of Doxycycline. She will discharged on steroid taper. She also required home O2 setup which was arranged by case management. Patient was
discharged home on 09/24 with [facility] services. She will follow up with Pulmonary in 4-6 weeks.
Discharge Plan
-
Patient Disposition: Home (Routine Discharge)
Discharge Diagnosis/Procedures: Acute hypoxic respiratory failure secondary to acute COPD exacerbation
Oral thrush
Coronary artery disease
Condition: Fair
Diet: As tolerated
Activity: As tolerated
Driving Restrictions: As prior to admission
Bathing Restrictions: None
Referrals:
Jacqueline Stein MD [Active, Pulmonary Medicine] - in two to three weeks
Referral Note: PFT
Kat Maravilla DO [Family Provider, Family Practice] - in less than 1 week
Additional Discharge Medication Instructions: Doxycycline course is 5 days - you already completed the course in the hospital
Prescriptions:
New
ipratropium-albuterol 0.5 mg-3 mg(2.5 mg base)/3 mL Solution For Nebulization
3 ml inhalation R Q4HPRN PRN (Reason: sob or wheezing) Qty: 90 0RF
clotrimazole 10 mg Noemy
10 mg PO 5/D Qty: 70 0RF
benzonatate 100 mg Capsule
200 mg PO TID Qty: 30 0RF
prednisone 10 mg tablet
10 mg PO DIRECTED Qty: 30 0RF
Rx Instructions:
take 50mg x 2 days, 40mg x 2 days, 30mg x 2 days, 20mg x 2 days, 10mg x 2 days
Continued
clonazepam 0.5 MG tablet
0.5 mg PO BID
gabapentin 300 MG capsule
300 mg PO Daily
gabapentin [Neurontin] 600 MG tablet
600 mg PO QPM
clopidogrel [Plavix] 75 mg Tablet
75 mg PO DAILY
pantoprazole [Protonix] 40 mg Tablet,Delayed Release (Dr/Ec)
40 mg PO BID
budesonide-formoterol [Symbicort] 160-4.5 mcg/actuation Hfa Aerosol Inhaler
2 inh INHALATION R BID
hydrocodone-acetaminophen 7.5-325 mg Tablet
1 tab PO Q6HPRN PRN (Reason: severe pain)
Repatha SureClick 140 mg/mL Pen Injector
140 mg SC Q2W
losartan 50 mg Tablet
50 mg PO DAILY
Discharge Orders:
Discharge Patient (As Directed); Ordered 09/24/25
Ordered By: Deena Aguilera
Discharge Date and Time
Print Language: NEPALI
--- NOTE | 2025-09-24 12:35 | CM ---
Pt is discharged to home with O2, needs O2 with exertion.
[facility] on board
Son will transport pt home with portable O2 tank.
O2 company
[employer]
fax # [phone]
== END 2025-09-24 13:16 | disposition home health service (06) | DRG 190 ==
LOC: 4 EAST ACU 14:11
PROVIDERS: ADMITTING PHYSICIAN Internal Medicine; ATTENDING PHYSICIAN Internal Medicine; CONSULT PHYSICIAN Internal Medicine; EMERGENCY PHYSICIAN Emergency Medicine; FAMILY PHYSICIAN Family Medicine
DX: J44.1 Chronic obstructive pulmonary disease with (acute) exacerbation (principal); J96.01 Acute respiratory failure with hypoxia; B37.0 Candidal stomatitis; E87.1 Hypo-osmolality and hyponatremia; Z87.891 Personal history of nicotine dependence; Z11.52 Encounter for screening for COVID-19; Z79.02 Long term (current) use of antithrombotics/antiplatelets; F41.9 Anxiety disorder, unspecified; M06.9 Rheumatoid arthritis, unspecified; I25.10 Atherosclerotic heart disease of native coronary artery without angina pectoris; L93.1 Subacute cutaneous lupus erythematosus; Z79.899 Other long term (current) drug therapy
CPT/HCPCS: 71046; 80048; 80076; 84132; 84484; 85025; 87502; 87811; 93005; 93306; 94640; 96365; 96375; 99291